=== PATIENT | female | born 1955 | race Hispanic/Latino ===

== ENCOUNTER 2021-04-17 18:23 | Emergency (ER) | payer OTHER ==
[~2021-04-17] VITALS: Ht 157.5 cm; Wt 93.0 kg
[2021-04-17] MEDS ORDERED: ASPIRIN 81 MG CHEW TAB PO ONE (18:30)
[2021-04-17 19:14] LABS: BASOPHILS # (AUTO) 0.1 (0.0-0.1); EOSINOPHILS # (AUTO) 0.2 (0.0-0.4); EOSINOPHILS % 2.6 % (0.0-6.0); HEMATOCRIT 43.7 % (34.2-44.1); HEMOGLOBIN 14.4 g/dL (12.0-16.0); LYMPHOCYTES # (AUTO) 1.8 (1.0-3.2); LYMPHOCYTES % 29.8 % (18.0-39.1); MEAN CORPUSCULAR HEMOGLOBIN 32.3 pg (28-32); MONOCYTES # (AUTO) 0.7 (0.2-0.8); MONOCYTES % 11.3 % (4.4-11.3); NEUTROPHILS # (AUTO) 3.3 (2.1-6.9); PLATELET COUNT 182 x10e3/uL (140-360); RED BLOOD COUNT 4.46 x10e6/uL (3.6-5.1); RED CELL DISTRIBUTION WIDTH 12.7 % (11.7-14.4)
[2021-04-17 19:26] LABS: ALANINE AMINOTRANSFERASE 30 IU/L (0-55); ALBUMIN 3.8 g/dL (3.5-5.0); ALBUMIN/GLOBULIN RATIO 1.2 (0.8-2.0); ALKALINE PHOSPHATASE 95 IU/L (40-150); BLOOD UREA NITROGEN 18 mg/dL (7-26); BUN/CREATININE RATIO 21 (6-25); CALCIUM 8.9 mg/dL (8.4-10.2); CARBON DIOXIDE 25 mmol/L (22-29); CHLORIDE 107 mmol/L (98-107); CREATININE, SERUM 0.87 mg/dL (0.57-1.11); EST GLOMERULAR FILTRATION RATE > 60 ML/MIN (60-); GLUCOSE 108 mg/dL (74-118); SODIUM 142 mmol/L (136-145)
[2021-04-17 20:00] LABS: CREATINE KINASE 72 IU/L (29-168)
[2021-04-17] MEDS ORDERED: GABAPENTIN 300 MG CAP PO ONE (21:30)
[2021-04-17] MEDS ORDERED: HYDROCODONE/APAP 5MG-325MG TAB PO ONE (21:30)
== END 2021-04-17 21:50 | disposition home or self-care (01) ==
LOC: ER 18:51
DX: M25.512 Pain in left shoulder (principal); M54.12 Radiculopathy, cervical region; R20.0 Anesthesia of skin; R94.31 Abnormal electrocardiogram [ECG] [EKG]
CPT/HCPCS: 36415; 71045; 72125; 80053; 82550; 82553; 84484; 85025; 93005